=== PATIENT | male | born 1985 | race African-American/Black ===

== ENCOUNTER 2019-11-07 21:47 | Emergency (ER) | payer OTHER ==
[~2019-11-07] VITALS: Ht 180.3 cm; Wt 74.8 kg
[2019-11-08] MEDS ORDERED: ATHLETE'S FOOT24 GM TOP (00:03)
[2019-11-08 00:17] VITALS: BP 116/70
== END 2019-11-08 00:18 | disposition home or self-care (01) ==
LOC: ER 21:47
DX: B35.4 Tinea corporis (principal); F17.210 Nicotine dependence, cigarettes, uncomplicated